=== PATIENT | male | born 1960 | race Caucasian/White ===

== ENCOUNTER 2020-12-22 14:03 | Inpatient (IN) | payer MEDICARE, MEDICAID ==
[2020-12-22 14:26] LABS: #Eosinphils 0.2 thou/uL (0.0-0.7); #Lymphocytes 1.2 thou/uL (1.20-3.40); #Monocytes 0.8 thou/uL (0.11-0.59); #Neutrophils 6.7 thou/uL (1.40-6.50); %Basophils 0.2 % (0.0-1.0); %Eosinophils 2.6 % (0.0-10.0); %Lymphocytes 12.9 % (21.0-51.0); %Monocytes 9.4 % (0.0-10.0); %Neutrophils 74.9 % (42.0-75.0); Hemoglobin 12.5 g/dL (14.0-18.0); Mean Corpuscular Hemoglobin 30.4 pg (27.0-31.0); Mean Corpuscular Volume 95.1 fL (78.0-98.0); Mean Platelet Volume 8.6 fL (7.4-10.4); Platelet Count 134 thou/uL (130-400); RBC Distribution Width 15.8 % (11.5-14.5); Red Blood Cell (RBC) Count 4.12 mill/uL (4.70-6.10); White Blood Cell (WBC) Count 8.9 thou/uL (4.8-10.8)
[2020-12-22 14:35] LABS: INR-International Normal Ratio 1.5; Prothrombin Time 18.1 sec (12.0-14.7)
[2020-12-22 14:36] LABS: PTT 39.2 sec (22.9-36.1)
[2020-12-22 14:40] LABS: ALT (SGPT) 12 U/L (8-55); AST (SGOT) 17 U/L (5-34); Albumin 4.3 g/dL (3.5-5.0); Alkaline Phosphatase 154 U/L (40-110); Anion Gap 13 mmol/L (10-20); BUN (Urea Nitrogen) 24 mg/dL (8.4-25.7); Bilirubin, Total 1.2 mg/dL (0.2-1.2); Calc. Creatinine Clearance 0 mL/min (70-130); Calcium 10.2 mg/dL (7.8-10.44); Carbon Dioxide 30 mmol/L (22-29); Chloride 102 mmol/L (98-107); Globulin 3.3 g/dL (2.4-3.5); Glucose 109 mg/dL (70-105); Potassium 4.5 mmol/L (3.5-5.1); Protein, Total 7.6 g/dL (6.0-8.3); Sodium 140 mmol/L (136-145)
[2020-12-22 17:51] LABS: Troponin I Less than 0.010 ng/mL (< 0.028)
[2020-12-22 19:40] VITALS: BMI 44.3
[2020-12-22 19:51] LABS: SARS-CoV-2 NAA Rapid Test Not Detected (NotDetected)
[2020-12-22 20:01] LABS: Bacteria/HPF None Seen HPF (None Seen); Bilirubin Negative (Negative); Blood, Urine 3+ (Negative); Clarity Turbid (Clear); Glucose, Urine (Dipstick) Normal (Negative); Ketone, Urine Negative (Negative); Leukocyte 250 Leu/uL (Negative); Nitrite Negative (Negative); Protein, Urine (Dipstick) Negative (Neg-Trace); RBC/HPF Greater than 50 HPF (0-3); Specific Gravity, Urine 1.013 (1.002-1.036); Squamous Epithelial None Seen HPF (0-3); Urobilinogen Normal mg/dL (Less than 2); WBC/HPF Greater than 50 HPF (0-3); pH, Urine 6.5 (5.0-9.0)
[2020-12-22 20:43] LABS: Troponin I Less than 0.010 ng/mL (< 0.028)
[2020-12-22] MEDS: Lactinex Tablet PO SCH (22:29)
[2020-12-22] MEDS: Allopurinol 100 MG TAB PO SCH (22:29)
[2020-12-22] MEDS: Famotidine 20 MG TAB PO SCH (22:29)
[2020-12-22] MEDS: Furosemide 20 MG TAB PO SCH (22:29)
[2020-12-22] MEDS: Apixaban 5 MG TAB PO SCH (22:29)
[2020-12-22] MEDS: Atorvastatin Calcium 10 MG TAB PO SCH (22:29)
[2020-12-22] MEDS: Melatonin 3 MG TAB PO SCH (22:30)
[2020-12-22 23:30] LABS: Actual Bicarbonate (HCO3v) 29 mEq/L (22-28); Base Excess 2.4 mEq/L (-2.0 to +3.0); Calcium, Ionized (venous) 1.14 mmol/L (1.16-1.32); Chloride (VBG) 102 mmol/L (98-106); Hemoglobin (Hb) 13.5 g/dL (13.1-17.2); Potassium (VBG) 4.42 mmol/L (3.70-5.30); Sodium 138.7 mmol/L (133-146); pH (venous) 7.36 (7.32-7.43)
[2020-12-23 05:46] LABS: #Basophils 0.1 thou/uL (0.0-0.2); #Eosinphils 0.2 thou/uL (0.0-0.7); #Lymphocytes 0.8 thou/uL (1.20-3.40); #Monocytes 0.6 thou/uL (0.11-0.59); #Neutrophils 6.6 thou/uL (1.40-6.50); %Basophils 0.7 % (0.0-1.0); %Eosinophils 2.2 % (0.0-10.0); %Lymphocytes 9.9 % (21.0-51.0); %Monocytes 7.5 % (0.0-10.0); %Neutrophils 79.7 % (42.0-75.0); Hemoglobin 12.1 g/dL (14.0-18.0); Mean Corpuscular HGB CONC 32.5 g/dL (32.0-36.0); Mean Corpuscular Hemoglobin 30.9 pg (27.0-31.0); Mean Corpuscular Volume 95.2 fL (78.0-98.0); Mean Platelet Volume 8.7 fL (7.4-10.4); Platelet Count 125 thou/uL (130-400); RBC Distribution Width 15.5 % (11.5-14.5); Red Blood Cell (RBC) Count 3.92 mill/uL (4.70-6.10); White Blood Cell (WBC) Count 8.3 thou/uL (4.8-10.8)
[2020-12-23 06:12] LABS: Anion Gap 12 mmol/L (10-20); BUN (Urea Nitrogen) 23 mg/dL (8.4-25.7); Calc. Creatinine Clearance 106 mL/min (70-130); Calcium 9.7 mg/dL (7.8-10.44); Carbon Dioxide 29 mmol/L (22-29); Chloride 102 mmol/L (98-107); Glucose 152 mg/dL (70-105); Potassium 4.5 mmol/L (3.5-5.1); Sodium 138 mmol/L (136-145)
[2020-12-23] MEDS: Furosemide 20 MG TAB PO SCH ×2 (11:00→20:40)
[2020-12-23] MEDS: Aspirin 81 mg Enteric Coated Tablet PO SCH (11:00)
[2020-12-23] MEDS: Thiamine 100 MG TAB PO SCH (11:01)
[2020-12-23] MEDS: Famotidine 20 MG TAB PO SCH ×2 (11:01→20:40)
[2020-12-23] MEDS: Allopurinol 100 MG TAB PO SCH ×2 (11:01→20:40)
[2020-12-23] MEDS: Lactinex Tablet PO SCH ×2 (11:01→20:40)
[2020-12-23] MEDS: Folic Acid 1 MG TAB PO SCH (11:01)
[2020-12-23] MEDS: Apixaban 5 MG TAB PO SCH (11:06)
[2020-12-23] MEDS: Melatonin 3 MG TAB PO SCH (20:40)
[2020-12-23] MEDS: Atorvastatin Calcium 10 MG TAB PO SCH (20:40)
[2020-12-23] MEDS: Enoxaparin Sodium 100 MG/ML SYRINGE SC SCH (20:41)
[2020-12-23] MEDS: Enoxaparin Sodium 30 MG/0.3 ML SYRINGE SC SCH (20:41)
[2020-12-24 07:22] LABS: Hemoglobin 12.5 g/dL (14.0-18.0); Platelet Count 159 thou/uL (130-400)
[2020-12-24] MEDS ORDERED: AFRIN NASAL MIST 15 ML BOT NS SCH (08:00)
[2020-12-24] MEDS ORDERED: Oxymetazoline HCl 0.05% (30 ML BOT) NS SCH (09:00)
[2020-12-24] MEDS: Enoxaparin Sodium 30 MG/0.3 ML SYRINGE SC SCH ×2 (09:18→21:07)
[2020-12-24] MEDS: Furosemide 20 MG TAB PO SCH ×2 (09:19→21:06)
[2020-12-24] MEDS: Enoxaparin Sodium 100 MG/ML SYRINGE SC SCH ×2 (09:19→21:07)
[2020-12-24] MEDS: Famotidine 20 MG TAB PO SCH ×2 (09:19→21:06)
[2020-12-24] MEDS: Lactinex Tablet PO SCH ×2 (09:19→21:06)
[2020-12-24] MEDS: Thiamine 100 MG TAB PO SCH (09:19)
[2020-12-24] MEDS: Allopurinol 100 MG TAB PO SCH ×2 (09:19→21:06)
[2020-12-24] MEDS: Folic Acid 1 MG TAB PO SCH (09:19)
[2020-12-24] MEDS: Aspirin 81 mg Enteric Coated Tablet PO SCH (09:19)
[2020-12-24] MEDS ORDERED: Acetaminophen 325 MG TAB PO PRN (11:43)
[2020-12-24] MEDS ORDERED: Dextrose 5% in Water 1,000 ML IV PRN (14:47)
[2020-12-24] MEDS ORDERED: HumaLOG 300 UNITS/3 ML VIAL SC PRN ×2 (14:47)
[2020-12-24] MEDS ORDERED: Dextrose 50% Abboject 50 ML SYRINGE SLOW IVP PRN (14:47)
[2020-12-24] MEDS: Melatonin 3 MG TAB PO SCH (21:06)
[2020-12-24] MEDS: Atorvastatin Calcium 10 MG TAB PO SCH (21:06)
[2020-12-25 08:05] LABS: Glucose 99 mg/dL (70-105)
[2020-12-25] MEDS ORDERED: Amlodipine 10 MG TAB PO SCH (09:00)
[2020-12-25] MEDS: Thiamine 100 MG TAB PO SCH (09:44)
[2020-12-25] MEDS: Folic Acid 1 MG TAB PO SCH (09:44)
[2020-12-25] MEDS: Aspirin 81 mg Enteric Coated Tablet PO SCH (09:44)
[2020-12-25] MEDS: Allopurinol 100 MG TAB PO SCH (09:45)
[2020-12-25] MEDS: Enoxaparin Sodium 30 MG/0.3 ML SYRINGE SC SCH (09:45)
[2020-12-25] MEDS: Famotidine 20 MG TAB PO SCH (09:45)
[2020-12-25] MEDS: Furosemide 20 MG TAB PO SCH (09:45)
[2020-12-25] MEDS: Lactinex Tablet PO SCH (09:46)
[2020-12-25 12:11] LABS: Glucose 139 mg/dL (70-105)
[2020-12-25 14:33] VITALS: TEMP 99.4
[2020-12-25 15:46] VITALS: BP 116/69
== END 2020-12-25 17:55 | DRG 309 ==
LOC: ERS 14:03 → ERHOLD 16:05 → OBSVTOIN 17:34 → 2SE 21:30
PROVIDERS: ADMIT Family Medicine; ATTEND Family Medicine
DX: R00.1 Bradycardia, unspecified (principal); I50.32 Chronic diastolic (congestive) heart failure; I69.354 Hemiplegia and hemiparesis following cerebral infarction affecting left non-dominant side; I13.0 Hypertensive heart and chronic kidney disease with heart failure and stage 1 through stage 4 chronic kidney disease, or unspecified chronic kidney disease; Z68.42 Body mass index [BMI] 45.0-49.9, adult; I42.9 Cardiomyopathy, unspecified; I48.20 Chronic atrial fibrillation, unspecified; N40.0 Benign prostatic hyperplasia without lower urinary tract symptoms; E78.5 Hyperlipidemia, unspecified; M10.9 Gout, unspecified; N18.31 Chronic kidney disease, stage 3a; G47.33 Obstructive sleep apnea (adult) (pediatric); F32.9 Major depressive disorder, single episode, unspecified; F10.11 Alcohol abuse, in remission; R29.6 Repeated falls; E11.22 Type 2 diabetes mellitus with diabetic chronic kidney disease; E66.01 Morbid (severe) obesity due to excess calories; Z88.1 Allergy status to other antibiotic agents; Z79.899 Other long term (current) drug therapy; Z79.82 Long term (current) use of aspirin; Z99.3 Dependence on wheelchair; Z79.01 Long term (current) use of anticoagulants
CPT/HCPCS: 36415; 36416; 70450; 71045; 72125; 80048; 80053; 81003; 81015; 82565; 82805; 82947; 84484; 85014; 85018; 85025; 85049; 85610; 85730; 86850; 86900; 86901; 93005; 93306; 94760; G0378; J1650; J1815; U0002; U0005